=== PATIENT | male | born 1995 | race African-American/Black ===

== ENCOUNTER 2020-07-24 04:36 | Emergency (ER) | payer BC ==
[~2020-07-24] VITALS: Ht 170.2 cm; Wt 59.0 kg
[~2020-07-24 04:36] MED LIST: CARAFATE1 GM PO; OMEPRAZOLE20 M2 PO; REGLAN 10 MG TA10 MG PO
[2020-07-24 05:15] LABS: ABSOLUTE NEUTROPHILS 12.9 thou/uL (1.4-8.2); BASOPHILS 0.4 % (0.0-2.0); EOSINOPHILS 0.2 % (0.0-3.0); HEMATOCRIT 44.8 % (42.0-52.0); HEMOGLOBIN 15.6 gm/dL (14.0-18.0); LYMPHOCYTES 13.9 % (24.0-44.0); MCHC 34.7 g/dL (28.0-37.0); MCV 86.5 fL (80.0-100.0); MONOCYTES 7.3 % (1.0-8.0); PLATELET COUNT 244 thou/uL (150-400); POLYS 78.2 % (36.0-66.0); RBC 5.18 mil/uL (4.50-6.00); RDW 13.9 % (10.5-14.5); WBC 16.4 thou/uL (4.0-11.0)
[2020-07-24 05:19] LABS: ANION GAP 9 mmol/L (7-16); BUN 18 mg/dL (7-18); CHLORIDE 103 mmol/L (98-107); CO2 31 mmol/L (21-32); CREATININE 1.2 mg/dL (0.7-1.3); GLUCOSE 114 mg/dL (74-106); POTASSIUM 3.9 mmol/L (3.5-5.1); SODIUM 143 mmol/L (136-145)
[2020-07-24 05:25] LABS: ALBUMIN 4.5 g/dL (3.4-5.0); AMYLASE 137 U/L (25-115); DIRECT BILIRUBIN < 0.1 mg/dL (<0.1-0.2); LIPASE 88 U/L (73-393); SGOT 30 U/L (15-37); SGPT 27 U/L (16-63); TOTAL BILIRUBIN 0.4 mg/dL (0.2-1.0); TOTAL PROTEIN 7.7 g/dL (6.4-8.2)
[2020-07-24] MEDS ORDERED: ZOFRAN ODT4 MG PO (05:44)
[2020-07-24] MEDS ORDERED: IMODIUM A-D2 MG PO (05:44)
[2020-07-24] MEDS ORDERED: BENTYL 10 MG CA10 M1 PO (05:44)
[2020-07-24 05:47] VITALS: BP 136/96
== END 2020-07-24 05:48 | disposition home or self-care (01) ==
LOC: ER 04:36
PROVIDERS: Emergency Medicine
DX: R10.9 Unspecified abdominal pain (principal); R11.2 Nausea with vomiting, unspecified; R19.7 Diarrhea, unspecified; K21.9 Gastro-esophageal reflux disease without esophagitis; F17.210 Nicotine dependence, cigarettes, uncomplicated; Z90.49 Acquired absence of other specified parts of digestive tract; Z79.899 Other long term (current) drug therapy